=== PATIENT | male | born 1960 | race Caucasian/White ===

== ENCOUNTER 2019-08-08 22:53 | Inpatient (IN) | payer MEDICAID ==
[~2019-08-08] VITALS: Ht 172.7 cm; Wt 82.6 kg
[~2019-08-08 22:53] MED LIST: FLEXERIL; FLEXERIL PO; HYDROCODON-ACE1 EAC7 PO; NOHOMEMEDICATIONS; NORCO 5-325 TA1 EACH PO; ULTRAM50 MG
[2019-08-08 22:55] VITALS: BP 156/81
[2019-08-08] MEDS ORDERED: GLUCOPHAGE XR500 M1 PO (23:06)
[2019-08-08 23:28] LABS: ABSOLUTE BASOPHILS 0.1 thou/uL (0.0-0.2); ABSOLUTE EOSINOPHILS 0.2 thou/uL (0.0-0.7); ABSOLUTE LYMPHOCYTES 1.3 thou/uL (0.8-5.3); ABSOLUTE MONOCYTES 0.9 thou/uL (0.0-1.2); ABSOLUTE NEUTROPHILS 6.8 thou/uL (1.6-8.1); BASOPHILS 1.2 %; HEMATOCRIT 38.3 % (42.0-52.0); HEMOGLOBIN 12.8 gm/dL (14.0-18.0); LYMPHOCYTES 14.6 %; MCHC 33.5 g/dL (28.0-37.0); MCV 83.6 fL (80.0-100.0); MONOCYTES 9.2 %; MPV 6.9 fl. (7.2-11.1); NUCLEATED RBCS 0 /100WBC; PLATELET COUNT* 383 thou/uL (150-400); RBC 4.58 mil/uL (4.50-6.00); RDW-CV 15.6 % (10.5-14.5); WBC 9.2 thou/uL (4.0-11.0)
[2019-08-08 23:38] LABS: CALCIUM 8.9 mg/dL (8.5-10.1); POTASSIUM 3.9 mmol/L (3.5-5.1)
[2019-08-08 23:42] LABS: ALBUMIN 2.2 g/dL (3.4-5.0); TOTAL BILIRUBIN 0.3 mg/dL (<0.1-1.0); TOTAL PROTEIN 8.4 g/dL (6.4-8.2)
[2019-08-09 00:21] VITALS: BP 158/80
[2019-08-09 00:30] VITALS: BP 157/76
[2019-08-09 04:31] VITALS: BP 128/57
[2019-08-09 07:00] VITALS: BP 129/75
[2019-08-09] MEDS ORDERED: OXYCODONE HCL5 MG PO (09:49)
[2019-08-09] MEDS ORDERED: HYDROCODON-ACE1 EAC7 PO (09:53)
[2019-08-09 15:57] VITALS: BP 141/64
[2019-08-09 20:00] VITALS: BP 129/60
[2019-08-10 04:38] LABS: HEMATOCRIT 39.3 % (42.0-52.0); HEMOGLOBIN 13.3 gm/dL (14.0-18.0); MCH 28.3 pg (26.0-34.0); MCHC 33.9 g/dL (28.0-37.0); MCV 83.5 fL (80.0-100.0); MPV 6.7 fl. (7.2-11.1); RBC 4.71 mil/uL (4.50-6.00); RDW-CV 15.6 % (10.5-14.5); WBC 9.3 thou/uL (4.0-11.0)
[2019-08-10 04:55] LABS: CALCIUM 8.6 mg/dL (8.5-10.1); CREATININE 0.7 mg/dL (0.6-1.3); MAGNESIUM 1.8 mg/dL (1.8-2.4); POTASSIUM 3.9 mmol/L (3.5-5.1)
[2019-08-10 08:23] VITALS: BP 146/76
--- NOTE | 2019-08-10 12:04 | CON ---
[address] [address] CONSULTATION Name: KELECHI DAS Room: [address] M.R.#: [id number] Admission: 08/08/19 Attend Phys: Marilyn Fernando MD Discharge: Date of : 56 Report #: [id number] THIS REPORT FOR: //name// CC: FAM physician/PCP Marilyn Fernando DATE OF SERVICE: 08/09/2019 INFECTIOUS DISEASE CONSULTATION ATTENDING PHYSICIAN: Dr. Fernando. REASON FOR EVALUATION: Bilateral lower extremity inflammatory eruptions, likely multifactorial and certainly underlying venous stasis insufficiency with dermatitis, ulcers. Also complicating skin and soft tissue infection with cellulitis. HISTORY OF PRESENT ILLNESS: Chart reviewed and patient examined today. This is a 59-year-old, known history of diabetes mellitus, unclear whether this is complicated by significant peripheral neuropathy. He has noted about a 2-month history of bilateral lower extremity inflammatory eruption and draining wounds, initially started on the posterior aspect of the right. He attributes this to a ____ type injury. He is quite somnolent. He notes there is swelling typically when he is up. He is uncertain about any fevers. He has had weight loss with diminished p.o. intake. He was evaluated previously, recommended antibiotics apparently that he did not take. Denies any significant pulmonary complaints, although he is on supplemental oxygen. He states he has a poor appetite. Stools without diarrhea. His empirical evaluation noted normal white count and markedly elevated glucose. Albumin was low. Lactic acid was 1.3. He is empirically started on therapy with vancomycin. ALLERGIES: None known. CURRENT MEDICATIONS: Insulin, enoxaparin, multivitamin, p.r.n. analgesics, antiemetics, zolpidem, metformin. PAST MEDICAL HISTORY: Diabetes mellitus, venous stasis insufficiency, previous cholecystectomy, left knee surgery. SOCIAL HISTORY: Smokes cigarettes, attributes that half pack will last a month. No ethanol. No illicit drug use. FAMILY HISTORY: Noncontributory. REVIEW OF SYSTEMS: [place] [address] CONSULTATION Name: PIPPAKELECHI MARIE Room: [address] IN .R.#: [id number] Admission: 08/08/19 Attend Phys: Marilyn Fernando MD Discharge: Date of : 56 Report #: [id number] PHYSICAL EXAMINATION: GENERAL: He appears chronically ill, undernourished. He is lethargic at this point. He does seem to be answering appropriately. VITAL SIGNS: Temperature 99, pulse 93, respirations 20, blood pressure is 129/75. SKIN: Warm. HEENT: Normocephalic. Extraocular muscles intact. NECK: Supple. LUNGS: Few scattered coarse breath sounds, somewhat diminished. HEART: Regular. Borderline tachycardic. I do not appreciate a murmur. ABDOMEN: Soft, nontender, nondistended. EXTREMITIES: Bilateral lower extremities have changes consistent with chronic venous stasis dermopathy, this is moderately inflamed. There are multiple ulcers bilaterally with serous type drainage, quite tender, these are primarily below the knee. GENITOURINARY: Deferred. RECTAL: Deferred. LABORATORY DATA: As described above. Prealbumin 9.4. Lactic acid 1.3. Electrolytes: Sodium 137, potassium 3.9, chloride 102, bicarbonate is 31, anion gap of 4, BUN and creatinine 15 and 1.0, glucose was 272. LFTs unremarkable. Albumin of 2.2, protein of 8.4. CBC: White count 9.2, H and H 12.8 and 38.3, platelets of 383. ASSESSMENT: Bilateral lower extremity inflammatory eruption, likely multifactorial. I think it is reasonable to continue the empiric antimicrobial therapy. He has good coverage with gram positive with vancomycin. Cultures of blood and blister pending. We will get wound care nurse to evaluate. Add compression as allowed. Check arterial Doppler studies. He remains somewhat tenuous. Monitor expectantly. <ELECTRONICALLY SIGNED> By: Valentino Jack MD 08/10/19 1204 [id number] Jack MD /nt
[2019-08-10 15:31] VITALS: BP 153/79
[2019-08-10 20:00] VITALS: BP 136/76
[2019-08-11 05:27] LABS: ABSOLUTE EOSINOPHILS 0.3 thou/uL (0.0-0.7); ABSOLUTE LYMPHOCYTES 1.7 thou/uL (0.8-5.3); ABSOLUTE MONOCYTES 0.8 thou/uL (0.0-1.2); BASOPHILS 0.5 %; EOSINOPHILS 3.8 %; HEMATOCRIT 42.1 % (42.0-52.0); HEMOGLOBIN 13.9 gm/dL (14.0-18.0); LYMPHOCYTES 21.2 %; MCH 27.7 pg (26.0-34.0); MCV 84.1 fL (80.0-100.0); MONOCYTES 10.5 %; MPV 7.3 fl. (7.2-11.1); NUCLEATED RBCS 0 /100WBC; PLATELET COUNT* 364 thou/uL (150-400); RDW-CV 15.5 % (10.5-14.5); WBC 7.8 thou/uL (4.0-11.0)
[2019-08-11 05:37] LABS: CALCIUM 8.8 mg/dL (8.5-10.1); CREATININE 0.6 mg/dL (0.6-1.3)
[2019-08-11 07:40] VITALS: BP 147/78
[2019-08-11 11:07] LABS: GLOBULIN TOTAL 4.7 g/dL (2.2-3.9); M-SPIKE Not Observed g/dL (Not Observed)
[2019-08-11 16:00] VITALS: BP 151/75
[2019-08-11 21:40] VITALS: BP 137/68
[2019-08-12 07:50] VITALS: BP 145/83
[2019-08-12 16:28] VITALS: BP 142/77
[2019-08-12 20:15] VITALS: BP 121/72
[2019-08-13 05:04] LABS: ABSOLUTE BASOPHILS 0.1 thou/uL (0.0-0.2); ABSOLUTE EOSINOPHILS 0.4 thou/uL (0.0-0.7); ABSOLUTE LYMPHOCYTES 1.8 thou/uL (0.8-5.3); ABSOLUTE MONOCYTES 0.8 thou/uL (0.0-1.2); ABSOLUTE NEUTROPHILS 4.6 thou/uL (1.6-8.1); BASOPHILS 1.3 %; EOSINOPHILS 4.7 %; HEMATOCRIT 42.7 % (42.0-52.0); HEMOGLOBIN 14.1 gm/dL (14.0-18.0); LYMPHOCYTES 23.6 %; MCH 27.6 pg (26.0-34.0); MCHC 33.1 g/dL (28.0-37.0); MCV 83.4 fL (80.0-100.0); MPV 6.8 fl. (7.2-11.1); NUCLEATED RBCS 0 /100WBC; PLATELET COUNT* 382 thou/uL (150-400); POLYS 59.4 %; RBC 5.12 mil/uL (4.50-6.00); RDW-CV 15.9 % (10.5-14.5); WBC 7.7 thou/uL (4.0-11.0)
[2019-08-13 07:53] VITALS: BP 114/73
[2019-08-13 20:00] VITALS: BP 132/74
[2019-08-14 04:31] LABS: HEMATOCRIT 42.5 % (42.0-52.0); HEMOGLOBIN 14.1 gm/dL (14.0-18.0); MCH 27.9 pg (26.0-34.0); MCHC 33.3 g/dL (28.0-37.0); MCV 83.8 fL (80.0-100.0); MPV 7.2 fl. (7.2-11.1); RBC 5.08 mil/uL (4.50-6.00); RDW-CV 15.5 % (10.5-14.5)
[2019-08-14 07:50] VITALS: BP 152/82
[2019-08-14 20:00] VITALS: BP 139/74
[2019-08-15 08:02] VITALS: BP 137/83
[2019-08-15 15:38] VITALS: BP 127/77
[2019-08-15 20:15] VITALS: BP 154/87
[2019-08-16 07:30] VITALS: BP 125/85
[2019-08-16] MEDS ORDERED: AUGMENTIN 875-1 EACH PO (12:07)
[2019-08-16] MEDS ORDERED: SUPER THERAVIT1 EACH PO (12:23)
[2019-08-16 12:35] VITALS: BP 125/85
[2019-08-16] MEDS ORDERED: TYLENOL325 MG PO (14:50)
[2019-08-16] MEDS ORDERED: HUMALOG100 UNIT/1 SUBQ (14:54)
[2019-08-16] MEDS ORDERED: LANTUS100 UNIT/M SUBQ (14:54)
[2019-08-16 16:00] VITALS: BP 168/82
== END 2019-08-16 17:57 | disposition home health service (06) | DRG 602 ==
LOC: M.ERS 22:53 → M.TBA-ER 23:50 → M.2W 23:50 → M.ORTHSURG 23:50 → M.2W 08-09 00:38 → M.ORTHSURG 08-09 14:24
PROVIDERS: Emergency Medicine; Family Medicine; Internal Medicine; Specialist; ADMIT Internal Medicine
DX: L03.116 Cellulitis of left lower limb (principal); E43 Unspecified severe protein-calorie malnutrition; L97.319 Non-pressure chronic ulcer of right ankle with unspecified severity; L97.329 Non-pressure chronic ulcer of left ankle with unspecified severity; L03.115 Cellulitis of right lower limb; E11.65 Type 2 diabetes mellitus with hyperglycemia; M17.12 Unilateral primary osteoarthritis, left knee; G89.29 Other chronic pain; F17.210 Nicotine dependence, cigarettes, uncomplicated; I87.8 Other specified disorders of veins; D64.9 Anemia, unspecified; B95.0 Streptococcus, group A, as the cause of diseases classified elsewhere; E11.51 Type 2 diabetes mellitus with diabetic peripheral angiopathy without gangrene; E11.622 Type 2 diabetes mellitus with other skin ulcer; Z90.49 Acquired absence of other specified parts of digestive tract; Z79.891 Long term (current) use of opiate analgesic; Z68.27 Body mass index [BMI] 27.0-27.9, adult; Z79.899 Other long term (current) drug therapy